=== PATIENT | female | born 1980 | race African-American/Black ===

== ENCOUNTER 2023-08-15 10:26 | Emergency (ER) | payer BC ==
[2023-08-15] MEDS ORDERED: MORPHINE 2 MG/ML SYR ONE (11:09)
[2023-08-15] MEDS ORDERED: ONDANSETRON 4 MG/2 ML VIAL ONE (11:09)
[2023-08-15] MEDS ORDERED: FAMOTIDINE 20 MG/2 ML VIAL IV ONE (11:09)
[2023-08-15] MEDS ORDERED: NA CHLORIDE 0.9% 1,000 ML ONE (11:09)
[2023-08-15 11:28] LABS: Absolute Lymphocytes (CBC) 1.2 K/uL (0.7-4.9); Hematocrit 44.4 % (36.0-45.0); Lymphocytes % 12.2 % (15.3-44.8); MCV 96.3 fL (80-100); MPV 7.1 fL (7.6-11.3); Platelets 270 thou/uL (152-406); RBC Red Blood Cell Count 4.61 M/uL (3.86-4.86)
[2023-08-15 11:29] LABS: Protime INR 1.07
[2023-08-15 11:57] LABS: Specific Gravity 1.016 (1.005-1.030)
[2023-08-15 12:00] LABS: Specific Gravity 1.016 (1.005-1.030); Urine Bacteria <20 /HPF (<20); Urine Bilirubin NEGATIVE (Negative); Urine Blood Trace (Negative); Urine Clarity Extremely Turbid (Clear); Urine Color Light-Yellow (Yellow); Urine Glucose NEGATIVE (Negative); Urine Mucus Slight /HPF (None Seen); Urine Protein 1+ (Negative); Urine RBC <5 /HPF (None Seen); Urine Urobilinogen Normal (Normal); Urine pH 5.5 (5.0-7.0)
[2023-08-15] MEDS ORDERED: PIPERACIL/TAZO 3.375 GM VIAL IV ONE (12:07)
[2023-08-15] MEDS ORDERED: NA CHLORIDE 0.9% 100 ML ONE (12:07)
--- NOTE | 2023-08-15 12:07 | RAD REPORT ---
EXAM DESCRIPTION: Suzi Single View08/15/2023 11:34 am CLINICAL HISTORY: Chest pain COMPARISON: none FINDINGS: The lungs appear clear of acute infiltrate. The heart appears borderline enlarged IMPRESSION: No acute abnormalities displayed
--- NOTE | 2023-08-15 12:53 | ER ---
Nurse's Notes [facility] Name: Abida Meyer Age: 42 yrs Sex: Female : 1980 Arrival Date: 08/15/2023 Time: 10:26 Bed 7 Private MD: Diagnosis: Leiomyoma of uterus, unspecified-massive 32cm x 32 cm;Abdominal pain, Generalized Presentation: 08/15 10:34 Chief complaint: Patient states: "Last night, I started having abdominal pain that mb9 feels like it's stabbing. Nothing is relieving the pain and it is constantly hurting that gets worse with a deep breathe. My last bowel movement was 2 days ago" Pt denies N/V/D. Coronavirus screen: Vaccine status: Patient reports being unvaccinated. Ebola Screen: No symptoms or risks identified at this time. Initial Sepsis Screen: Does the patient meet any 2 criteria? No. Patient's initial sepsis screen is negative. Does the patient have a suspected source of infection? No. Patient's initial sepsis screen is negative. Risk Assessment: Do you want to hurt yourself or someone else? Patient reports no desire to harm self or others. Onset of symptoms was August 15, 2023. 10:34 Method Of Arrival: Wheelchair mb9 10:34 Acuity: TIFFANY 3 mb9 Triage Assessment: 10:37 General: Appears uncomfortable, Behavior is cooperative. Pain: Complains of pain in mb9 abdomen Pain radiates to RUQ and RLQ Pain currently is 10 out of 10 on a pain scale. Quality of pain is described as sharp, shooting, Pain began 1 day ago. Is continuous. EENT: No signs and/or symptoms were reported regarding the EENT system. Neuro: Melendez Agitation-Sedation Scale (RASS): 0 - Alert and Calm Level of Consciousness is awake, alert, obeys commands, Oriented to person, place, time, situation, Appropriate for age. Cardiovascular: Patient's skin is warm and dry. Respiratory: Airway is patent Respiratory effort is even, unlabored, Respiratory pattern is regular, symmetrical, Breath sounds are clear bilaterally. GI: Abdomen is round non-distended, Abd is soft Abdomen is tender to palpation in right upper quadrant and right lower quadrant Patient currently denies diarrhea, nausea, vomiting. : No signs and/or symptoms were reported regarding the genitourinary system. Derm: Skin is pink, warm \\T\\ dry. Musculoskeletal: Range of motion: intact in all extremities. Historical: - Allergies: 10:37 No Known Allergies; mb9 - Home Meds: 10:37 None [Active]; mb9 - PMHx: 10:37 Atrial fibrillation; mb9 - PSHx: 10:37 None; mb9 - Immunization history:: Adult Immunizations up to date. - Social history:: Smoking status: Patient denies any tobacco usage or history of. Screenin:31 [facility] ED Fall Risk Assessment (Adult) History of falling in the last 3 months, tm6 including since admission No falls in past 3 months (0 pts). Abuse screen: Denies threats or abuse. Denies injuries from another. Nutritional screening: No deficits noted. Tuberculosis screening: No symptoms or risk factors identified. Assessment: 10:38 Reassessment: see triage assessment. [facility] 11:31 Pain: Complains of pain in abdomen. GI: Bowel sounds present X 4 quads. Abd is rigid in tm6 right upper quadrant. :. 12:43 Reassessment: Patient appears in no apparent distress at this time. Patient denies pain tm6 at this time. Patient states feeling better. 13:48 Reassessment: Patient appears in no apparent distress at this time. No changes from tm6 previously documented assessment. Vital Signs: 10:34 BP 166 / 99; Pulse 90; Resp 18; Temp 98.8; Pulse Ox 97% on R/A; Weight 104.33 kg; mb9 Height 5 ft. 7 in. ; Pain 10/10; 11:15 Pain 8/10; tm6 11:38 BP 184 / 125; tm6 11:38 Pulse 82; Pulse Ox 96% on R/A; tm6 12:43 BP 163 / 106; Pulse 79; Resp 21; Pulse Ox 95% on R/A; tm6 12:47 Pain 0/10; tm6 13:48 BP 118 / 72; Pulse 87; Pulse Ox 96% on R/A; tm6 15:01 Pain 5/10; tm6 16:03 BP 174 / 101; Pulse 81; Pulse Ox 97% on R/A; Pain 3/10; tm6 16:18 BP 174 / 101; Pulse 84; Resp 18; Pulse Ox 97% on R/A; Pain 8/10; tm6 10:34 Body Mass Index 36.02 (104.33 kg, 170.18 cm) mb9 10:34 Pain Scale: Adult mb9 11:15 Pain Scale: Adult tm6 12:47 Pain Scale: Adult tm6 15:01 Pain Scale: Adult tm6 16:03 Pain Scale: Adult tm6 16:18 Pain Scale: Adult tm6 ED Course: 10:30 Patient arrived in ED. mg5 10:32 Jerry Ascencio MD is Attending Physician. sherron 10:37 Triage completed. mb9 10:37 Arm band placed on. mb9 10:51 Radiology exam delayed due to test not completed at this time. sj 10:52 Marika Landers, RN is Primary Nurse. tm6 11:31 Patient has correct armband on for positive identification. Placed in gown. Bed in low tm6 position. Call light in reach. Side rails up X2. Provided Education on: need for urine sample. Client placed on continuous cardiac and pulse oximetry monitoring. NIBP monitoring applied. bus driver/monitor on. Door closed. Warm blanket given. 11:31 No provider procedures requiring assistance completed. Inserted saline lock: 22 gauge tm6 in right forearm, using aseptic technique. 11:36 XRAY Chest (1 view) In Process Unspecified. EDMS 12:00 US Abdomen Limited In Process Unspecified. EDMS 12:19 CT Chest For PE Angio In Process Unspecified. EDMS 12:20 CT Abd/Pelvis - IV Contrast Only In Process Unspecified. EDMS 13:[address] Ascencio called for Transfer to [facility] [address] [facility] called no beds at this time. sp 13:17 called [facility] for Transfer talked to Deonte. sp 15:20 purewick placed. tm6 15:30 IV discontinued, intact, bleeding controlled, Pressure dressing applied, 22G to R FA aa5 dc'd, site hard to flush. 15:32 Missed attempt(s): 22 gauge in left wrist. Bleeding controlled, band aid applied, aa5 catheter tip intact. 15:35 Inserted saline lock: 22 gauge in left antecubital area, using aseptic technique. aa5 15:[address] Jimmy Buckley accepted pt to [facility] [address] P- admin approval bed # [id number] number [id number]. Administered Medications: 11:26 Drug: Ondansetron IVP 4 mg IVP once; over 2 minutes Route: IVP; Site: right forearm; tm6 11:27 Drug: Famotidine IVP 20 mg IVP once; dilute with 10 mL 0.9% NaCl; give over 2 minutes tm6 Route: IVP; Site: right forearm; 11:28 Drug: NS 0.9% IV 1000 ml IV at 1 bolus Per protocol; 1000 mL bolus Route: IV; Rate: 1 tm6 bolus; Site: right forearm; 14:24 Follow up: Response: No adverse reaction; IV Intake: 1000ml tm6 11:28 Drug: morphine IVP or IV 2 mg IVP once over 4 mins Route: IVP; Infused Over: 4 mins; tm6 Site: right forearm; 12:43 Drug: Piperacillin-Tazobactam IVPB 3.375 grams IVPB once over 60 mins; (mix in NS 100 tm6 mL) Route: IVPB; Infused Over: 60 mins; Site: right forearm; 14:24 Drug: morphine IVP or IV 4 mg IVP once over 4 mins Route: IVP; Infused Over: 4 mins; tm6 Site: right forearm; 15:01 Follow up: Pain 5/10 Adult; Response: Marked relief of symptoms tm6 16:04 Follow up: Response: No adverse reaction; Marked relief of symptoms tm6 15:06 Drug: Ketorolac IVP 30 mg IVP once Route: IVP; Site: right antecubital; ld1 16:18 Drug: morphine IVP or IV 4 mg IVP once over 4 mins; Verbal order from Dr. Ascencio tm6 Route: IVP; Infused Over: 4 mins; Site: left antecubital; Medication: 11:31 VIS not applicable for this client. tm6 Intake: 14:24 IV: 1000ml; Total: 1000ml. tm6 Outcome: 12:52 ER care complete, transfer ordered by MD. siu 16:18 Patient left the ED. tm6 Signatures: Dispatcher [employer] Jerry Arrington MD MD cha Pinkerton, Shawna sp Jones, Susan sj Calderon, Audri, RN RN aa5 Augusta Rodriguez RN RN ld1 Jacinta Ramos RN RN mb9 Anjali Julio mg5 Anshul, Tawney, RN RN tm6
--- NOTE | 2023-08-15 12:53 | EDPHYS ---
Physician Documentation [facility] Name: Abida Meyer Age: 42 yrs Sex: Female : 1980 Arrival Date: 08/15/2023 Time: 10:26 Bed 7 Private MD: ED Physician Jerry Ascencio HPI: 08/15 12:00 This 42 yrs old Black Female presents to ER via Wheelchair with complaints of Abdominal sherron Pain, Breathing Difficulty - hurts taking a deep breath. 12:00 The patient has shortness of breath with light activity. Onset: The symptoms/episode sherron began/occurred 1 day(s) ago. Duration: The symptoms are continuous, and are steadily getting worse. The patient's shortness of breath has no apparent modifying factors. Associated signs and symptoms: Pertinent positives: chest pain. Severity of symptoms: At their worst the symptoms were moderate severe in the emergency department the symptoms have improved mildly. 12:01 The patient presents with abdominal pain in the upper abdomen, in the right upper sherron quadrant, abdominal distention in the upper abdomen, in the lower abdomen. Onset: The symptoms/episode began/occurred 1 day(s) ago. The symptoms do not radiate. Associated signs and symptoms: Pertinent positives: chest pain, shortness of breath. The symptoms are described as crampy. Modifying factors: The symptoms are alleviated by nothing, the symptoms are aggravated by breathing deeply. Severity of pain: At its worst the pain was moderate in the emergency department the pain is unchanged. The patient has not experienced similar symptoms in the past. Historical: - Allergies: 10:37 No Known Allergies; mb9 - Home Meds: 10:37 None [Active]; mb9 - PMHx: 10:37 Atrial fibrillation; mb9 - PSHx: 10:37 None; mb9 - Immunization history:: Adult Immunizations up to date. - Social history:: Smoking status: Patient denies any tobacco usage or history of. ROS: 12:03 Constitutional: Negative for fever, chills, and weight loss, Eyes: Negative for injury, sherron pain, redness, and discharge, ENT: Negative for injury, pain, and discharge, Neck: Negative for injury, pain, and swelling, Cardiovascular: Negative for chest pain, palpitations, and edema, Respiratory: Negative for shortness of breath, cough, wheezing, and pleuritic chest pain, Back: Negative for injury and pain, : Negative for injury, bleeding, discharge, and swelling, MS/Extremity: Negative for injury and deformity, Skin: Negative for injury, rash, and discoloration, Neuro: Negative for headache, weakness, numbness, tingling, and seizure, Psych: Negative for depression, anxiety, suicide ideation, homicidal ideation, and hallucinations, Allergy/Immunology: Negative for hives, rash, and allergies, Endocrine: Negative for neck swelling, polydipsia, polyuria, polyphagia, and marked weight changes, Hematologic/Lymphatic: Negative for swollen nodes, abnormal bleeding, and unusual bruising, 12:03 Abdomen/GI: Positive for abdominal pain, of the epigastric area and right upper quadrant, Exam: 12:03 Constitutional: This is a well developed, well nourished patient who is awake, alert, sherron and in no acute distress. Head/Face: Normocephalic, atraumatic. Eyes: Pupils equal round and reactive to light, extra-ocular motions intact. Lids and lashes normal. Conjunctiva and sclera are non-icteric and not injected. Cornea within normal limits. Periorbital areas with no swelling, redness, or edema. ENT: Nares patent. No nasal discharge, no septal abnormalities noted. Tympanic membranes are normal and external auditory canals are clear. Oropharynx with no redness, swelling, or masses, exudates, or evidence of obstruction, uvula midline. Mucous membranes moist. Neck: Trachea midline, no thyromegaly or masses palpated, and no cervical lymphadenopathy. Supple, full range of motion without nuchal rigidity, or vertebral point tenderness. No Meningismus. Chest/axilla: Normal chest wall appearance and motion. Nontender with no deformity. No lesions are appreciated. Cardiovascular: Regular rate and rhythm with a normal S1 and S2. No gallops, murmurs, or rubs. Normal PMI, no JVD. No pulse deficits. Respiratory: Lungs have equal breath sounds bilaterally, clear to auscultation and percussion. No rales, rhonchi or wheezes noted. No increased work of breathing, no retractions or nasal flaring. Back: No spinal tenderness. No costovertebral tenderness. Full range of motion. Skin: Warm, dry with normal turgor. Normal color with no rashes, no lesions, and no evidence of cellulitis. MS/ Extremity: Pulses equal, no cyanosis. Neurovascular intact. Full, normal range of motion. Neuro: Awake and alert, GCS 15, oriented to person, place, time, and situation. Cranial nerves II-XII grossly intact. Motor strength 5/5 in all extremities. Sensory grossly intact. Cerebellar exam normal. Normal gait. 12:03 ECG was reviewed by the Attending Physician. 12:03 Abdomen/GI: Inspection: distension, Bowel sounds: normal, Palpation: moderate abdominal tenderness, in the epigastric area, suprapubic area and right upper quadrant, Liver: no appreciated palpable abnormalities, Hernia: not appreciated, Vital Signs: 10:34 BP 166 / 99; Pulse 90; Resp 18; Temp 98.8; Pulse Ox 97% on R/A; Weight 104.33 kg; mb9 Height 5 ft. 7 in. ; Pain 10/10; 11:15 Pain 8/10; tm6 11:38 BP 184 / 125; tm6 11:38 Pulse 82; Pulse Ox 96% on R/A; tm6 12:43 BP 163 / 106; Pulse 79; Resp 21; Pulse Ox 95% on R/A; tm6 12:47 Pain 0/10; tm6 13:48 BP 118 / 72; Pulse 87; Pulse Ox 96% on R/A; tm6 15:01 Pain 5/10; tm6 16:03 BP 174 / 101; Pulse 81; Pulse Ox 97% on R/A; Pain 3/10; tm6 16:18 BP 174 / 101; Pulse 84; Resp 18; Pulse Ox 97% on R/A; Pain 8/10; tm6 10:34 Body Mass Index 36.02 (104.33 kg, 170.18 cm) mb9 10:34 Pain Scale: Adult mb9 11:15 Pain Scale: Adult tm6 12:47 Pain Scale: Adult tm6 15:01 Pain Scale: Adult tm6 16:03 Pain Scale: Adult tm6 16:18 Pain Scale: Adult tm6 MDM: 10:32 Patient medically screened. sherron 12:05 Differential diagnosis: Anxiety Reaction Bronchitis pneumonia, Pneumothorax pulmonary sherron edema, Pulmonary Embolism reactive airway disease, appendicitis, bowel obstruction, cholecystitis, Cholelithiasis, diverticulitis, gastritis, pancreatitis, Peptic Ulcer Disease, Ureterolithiasis, urinary tract infection. Antibiotic administration: zosyn. Immunization status:. Data reviewed: vital signs, nurses notes, lab test result(s), EKG, radiologic studies, CT scan, plain films, ultrasound. Consideration of Admission/Observation Patient was admitted/placed on observation. Escalation of care including admission/observation considered. I considered the following discharge prescriptions or medication management in the emergency department Medications were administered in the Emergency Department. See MAR. Independent interpretation of the following test(s) in the Emergency Department EKG: See my EKG interpretation above. Test considered but Not performed: MRI: no mrcp. Care significantly affected by the following chronic conditions: Hypertension, a fib, hth. Counseling: I had a detailed discussion with the patient and/or guardian regarding the historical points, exam findings, and any diagnostic results supporting the discharge/admit diagnosis, the presence of at least one elevated blood pressure reading (>120/80) during this emergency department visit, lab results, radiology results, the need for further work-up and treatment in the hospital. 08/15 10:35 Order name: Basic Metabolic Panel; Complete Time: 13:15 [facility] 08/15 10:35 Order name: CBC with Diff; Complete Time: 11:59 sherron 08/15 10:35 Order name: LFT's; Complete Time: 13:15 [facility] 08/15 10:35 Order name: Magnesium; Complete Time: 13:15 08/15 10:35 Order name: NT PRO-BNP; Complete Time: 13:15 08/15 10:35 Order name: PT-INR; Complete Time: 11:59 08/15 10:35 Order name: Troponin HS; Complete Time: 13:15 08/15 10:35 Order name: Lipase; Complete Time: 13:15 [facility] 08/15 10:35 Order name: Urinalysis w/ reflexes; Complete Time: 12:09 [facility] 08/15 10:35 Order name: PREGU; Complete Time: 11:59 [facility] 08/15 10:35 Order name: XRAY Chest (1 view); Complete Time: 12:09 [facility] 08/15 10:35 Order name: CT Chest For PE Angio; Complete Time: 13:15 [facility] 08/15 10:35 Order name: CT Abd/Pelvis - IV Contrast Only; Complete Time: 13:15 [facility] 08/15 11:24 Order name: US Abdomen Limited; Complete Time: 13:15 [facility] 08/15 10:35 Order name: EKG; Complete Time: 10:35 [facility] 08/15 10:35 Order name: Cardiac monitoring; Complete Time: 11:30 [facility] 08/15 10:35 Order name: EKG - Nurse/Tech; Complete Time: 11:30 [facility] 08/15 10:35 Order name: IV Saline Lock; Complete Time: 11:30 [facility] 08/15 10:35 Order name: Labs collected and sent; Complete Time: 11: [facility] 08/15 10:35 Order name: O2 Per Protocol; Complete Time: 10:53 [facility] 08/15 10:35 Order name: O2 Sat Monitoring; Complete Time: 10:53 [facility] 08/15 12:06 Order name: Labs - recollect needed; Complete Time: 12:43 sp EC:03 Rate is 84 beats/min. Rhythm is regular. QRS [place] is Normal. CA interval is normal. QRS sherron interval is normal. QT interval is normal. No Q waves. T waves are Normal. No ST changes noted. Clinical impression: NSR w/ Non-specific ST/T Changes and No evidence of ischemia. Interpreted by me. Reviewed by me. Administered Medications: 11:26 Drug: Ondansetron IVP 4 mg IVP once; over 2 minutes Route: IVP; Site: right forearm; tm6 11:27 Drug: Famotidine IVP 20 mg IVP once; dilute with 10 mL 0.9% NaCl; give over 2 minutes tm6 Route: IVP; Site: right forearm; 11:28 Drug: NS 0.9% IV 1000 ml IV at 1 bolus Per protocol; 1000 mL bolus Route: IV; Rate: 1 tm6 bolus; Site: right forearm; 14:24 Follow up: Response: No adverse reaction; IV Intake: 1000ml tm6 11:28 Drug: morphine IVP or IV 2 mg IVP once over 4 mins Route: IVP; Infused Over: 4 mins; tm6 Site: right forearm; 12:43 Drug: Piperacillin-Tazobactam IVPB 3.375 grams IVPB once over 60 mins; (mix in NS 100 tm6 mL) Route: IVPB; Infused Over: 60 mins; Site: right forearm; 14:24 Drug: morphine IVP or IV 4 mg IVP once over 4 mins Route: IVP; Infused Over: 4 mins; tm6 Site: right forearm; 15:01 Follow up: Pain 02/02 Adult; Response: Marked relief of symptoms tm6 16:04 Follow up: Response: No adverse reaction; Marked relief of symptoms tm6 15:06 Drug: Ketorolac IVP 30 mg IVP once Route: IVP; Site: right antecubital; ld1 16:18 Drug: morphine IVP or IV 4 mg IVP once over 4 mins; Verbal order from Dr. Ascencio tm6 Route: IVP; Infused Over: 4 mins; Site: left antecubital; Disposition Summary: 08/15/23 12:52 Transfer Ordered Notes: Transfer Location: [facility] sherron Reason: Higher level of care sherron Condition: Stable sherron Problem: new sherron Symptoms: have improved sherron Accepting Physician: to [facility](08/15/23 16:18) tm6 Diagnosis - Leiomyoma of uterus, unspecified - massive 32cm x 32 cm(08/15/23 12:54) sherron - Abdominal pain, Generalized sherron Forms: - Medication Reconciliation Form sherron - SBAR form sherron Signatures: Dispatcher [employer] EDJerry Good MD MD cha Pinkerton, Shawna sp Sims, Lauren, RN RN ld1 Jacinta Ramos, RN RN mb9 Marika Landers RN RN tm6 Corrections: (The following items were deleted from the chart) 12:54 12:52 to [facility] sherron sherron 12:54 12:52 Leiomyoma of uterus, unspecified sherorn sherron 16:18 12:54 to [facility] sherron tm6
--- NOTE | 2023-08-15 12:58 | RAD REPORT ---
EXAM DESCRIPTION: CT - Abdomen Pelvis W Contrast - 08/15/2023 12:18 pm CLINICAL HISTORY: Abdominal pain COMPARISON: none. TECHNIQUE: Computed axial tomography of the abdomen pelvis was obtained. 100 cc Isovue-300 was admin istered intravenously. Oral contrast was not requested which limits evaluation of bowel and appendix All CT scans are performed using dose optimization technique as appropriate and may include automated exposure control or mA/KV adjustment according to patient size. FINDINGS: The liver, spleen, pancreas, adrenal and kidneys appear unremarkable. There is no evidence of diverticulitis. The uterus is massively enlarged containing many fibroids. A subserosal fibroid measuring 20 centimet ers extends well into the left abdomen. A 23 centimeter with a low to intermediate density mass abuts the uterus extending into the right abd omen. Small amount of ascites. IUD within the uterus. IMPRESSION: Massively enlarged fibroid uterus. 23 centimeter mass abuts the uterus extending into the right abdomen. Most likely it represents an ad ditional subserosal fibroid. If clinically indicated further evaluation with MRI may be helpful
--- NOTE | 2023-08-15 12:59 | RAD REPORT ---
EXAM DESCRIPTION: US - Abdomen Exam Limited - 08/15/2023 11:58 am CLINICAL HISTORY: Abdominal pain. COMPARISON: None. FINDINGS: The gallbladder wall is not thickened. A gallstone is not seen. The biliary tree is normal caliber. IMPRESSION: Unremarkable gallbladder ultrasound.
--- NOTE | 2023-08-15 13:02 | RAD REPORT ---
EXAM DESCRIPTION: CT - Chest For Pe Angio - 08/15/2023 12:18 pm CLINICAL HISTORY: Chest pain COMPARISON: None. TECHNIQUE: Dynamically enhanced axial 3 mm thick images of the chest were obtained during administra tion of 100 mL Isovue 370 IV contrast. Coronal and oblique reconstruction images were generated and r eviewed. Exam utilizes a protocol for optimal evaluation of pulmonary arterial tree. Maximum intensity projections 3D imaging was utilized All CT scans are performed using dose optimization technique as appropriate and may include automated exposure control or mA/KV adjustment according to patient size. FINDINGS: Suboptimal opacification of the pulmonary arteries. No gross pulmonary embolus seen A thoracic aortic aneurysm is not noted. A pleural effusion is not seen. A pericardial effusion is not seen. A lung consolidation is not present. IMPRESSION: No gross pulmonary embolus seen
[2023-08-15 13:10] LABS: ALT/SGPT 36 U/L (13-56); Albumin 2.6 g/dL (3.4-5.0); Alkaline Phosphatase 46 U/L (45-117); BUN Blood Urea Nitrogen 21 mg/dL (7-18); Bicarbonate 23 mEq/L (21-32); Bilirubin Total 0.2 mg/dL (0.2-1.0); Glomerular Filtration Rate 83 ml/min (=/>90); Glucose Level 112 mg/dL (74-106); Lipase 20 U/L (13-75); NT PRO-BNP 156 pg/mL (<125); Protein, Total 6.4 g/dL (6.4-8.2); Sodium Level 135 mEq/L (136-145); Troponin High Sensitivity 4.9 pg/mL (<58.9)
[2023-08-15 13:11] LABS: AST/SGOT 451 U/L (15-37); Bilirubin Direct < 0.1 mg/dL (0-0.2); Bilirubin Indirect, Calculated ND mg/dL (0.2-0.8); Magnesium 2.1 mg/dL (1.6-2.4)
[2023-08-15] MEDS ORDERED: MORPHINE 4 MG/ML SYR ONE ×2 (14:27→16:29)
[2023-08-15] MEDS ORDERED: KETOROLAC 30 MG/ML INJ ONE (14:47)
[2023-08-15 17:55] VITALS: TEMP 98.8
[2023-08-15 18:11] VITALS: BP 174/101; O2SAT 97
--- NOTE | 2023-08-17 16:57 | EKG ---
Test Date: 2023-08-15 Test Time: 11:06:44 [employer] Form Placing Supervisor: JEROME MEASUREMENT RESULTS: Intervals: Rate: 84 MN: 168 QRSD: 88 QT: 386 QTc: 456 [place]: P: 49 MN: 168 QRS: 114 T: 36 INTERPRETIVE STATEMENTS: Normal sinus rhythm Right axis deviation Septal infarct, age undetermined Abnormal ECG No previous ECG available for comparison Electronically Signed On 08-17-23 16:52:10 BUSINESS SERVICES VICE PRESIDENT by Vinh Badillo
== END 2023-08-15 16:18 | disposition short-term general hospital (02) ==
LOC: ER 10:26
DX: D25.9 Leiomyoma of uterus, unspecified (principal); R07.9 Chest pain, unspecified; I48.91 Unspecified atrial fibrillation
CPT/HCPCS: 93005; 85025; 81001; 80048; 36415; 83735; 81025; 85610; 80076; 84484; 83690; 83880; 71275; 74177; 71045; 76705; 99284; Q9967; J2543; J2270; J2405; J7030